=== PATIENT | male | born 1960 | race Two or more races ===

== ENCOUNTER → 2024-03-11 | Outpatient (CLI) | payer BC | LOC: M PLAIMG 09:25 | PROVIDERS: ATTEND Physician Assistant Medical | DX: J32.0 Chronic maxillary sinusitis (principal) ==

== ENCOUNTER → 2025-03-15 | Outpatient (CLI) | payer BC ==
[~2025-03-15] MED LIST: AZEL1SPR3; ECOT81TA5 PO; EZET10TA57 PO; FLUTISP; OMEG10002 PO; ROSU40TA81 PO; VITA100093 PO
== END ==
LOC: M PLAIMG 14:44
PROVIDERS: ATTEND Otolaryngology
DX: J32.0 Chronic maxillary sinusitis (principal); J34.2 Deviated nasal septum

== ENCOUNTER 2025-03-23 06:16 | Day surgery (SDC) | payer BC ==
[~2025-03-23] VITALS: Ht 180.3 cm; Wt 101.2 kg
[~2025-03-23 06:16] MED LIST changes: +dexAMETHasone 4 MG/ML 1 ML VIAL IV ONE
[2025-03-23] MEDS ORDERED: MIDAZOLAM INJ 2 MG/2 ML VIAL As Ordered ONE (06:52)
[2025-03-23] MEDS ORDERED: LIDOCAINE 2% 100 MG/5 ML SDV (FOR ANES.) As Ordered ONE (06:53)
[2025-03-23] MEDS ORDERED: ONDANSETRON 4MG/2ML VIAL As Ordered ONE (06:53)
[2025-03-23] MEDS ORDERED: ROCURONIUM BROMIDE 50MG/5ML VIAL As Ordered ONE (06:53)
[2025-03-23] MEDS ORDERED: dexAMETHasone 4 MG/ML 1 ML VIAL As Ordered ONE (06:53)
[2025-03-23] MEDS: SODIUM CHLORIDE 0.9% NASAL GEL 15GM (AYR) As Ordered ONE (07:08)
[2025-03-23] MEDS ORDERED: PHENYLephrine 500MCG 5ML (100MCG/ML) SYRINGE As Ordered ONE (08:08)
[2025-03-23] MEDS: EPINEPHrine 1 MG/ML INJ 30 ML MD-VIAL As Ordered ONE (08:12)
[2025-03-23] MEDS: METHYLENE BLUE 0.5% (5 MG/ML) 10 ML AMP As Ordered ONE (08:12)
[2025-03-23] MEDS ORDERED: ACETAMINOPHEN 1000MG/100ML IV BAG As Ordered ONE (08:12)
[2025-03-23] MEDS: LIDOCAINE W/EPINEPHrine 1% 20 ML VIAL As Ordered ONE (08:19)
[2025-03-23] MEDS ORDERED: LR 1,000 ML IV SCH (08:35)
[2025-03-23] MEDS ORDERED: LACRILUBE (AKWA TEARS) OPHTH OINT 3.5 GM As Ordered ONE (08:41)
[2025-03-23] MEDS ORDERED: KETOROLAC 30 MG/ML 1 ML VIAL As Ordered ONE (09:14)
[2025-03-23] MEDS ORDERED: ONDANSETRON 4MG/2ML VIAL IV PRN (10:25)
[2025-03-23 12:10] VITALS: BP 150/70; TEMP 97.5; O2SAT 96
== END 2025-03-23 12:20 | disposition home or self-care (01) ==
LOC: M SDC 06:16
PROVIDERS: ATTEND Otolaryngology
DX: J32.0 Chronic maxillary sinusitis (principal); J32.2 Chronic ethmoidal sinusitis; J34.2 Deviated nasal septum; J34.89 Other specified disorders of nose and nasal sinuses; I25.10 Atherosclerotic heart disease of native coronary artery without angina pectoris; E78.00 Pure hypercholesterolemia, unspecified; Z95.5 Presence of coronary angioplasty implant and graft; Z79.82 Long term (current) use of aspirin; Z79.899 Other long term (current) drug therapy; J31.0 Chronic rhinitis
CPT/HCPCS: 30520; 31240; 31255; 31267; 61782; 88300; C2625; J0131; J0165; J1100; J1885; J2250; J2371; J2405; J3010; J3490